=== PATIENT | female | born 1990 | race Caucasian/White ===

== ENCOUNTER 2016-08-22 01:57 | Emergency (ER) | payer OTHER ==
[2016-08-22] MEDS ORDERED: IOPAMIDOL 370 (76%) 100 ML VIAL IV ONE (01:58)
[2016-08-22] MEDS ORDERED: MORPHINE SULFATE 4 MG/ML SYRINGE ONE (02:50)
[2016-08-22] MEDS ORDERED: ONDANSETRON 4 MG/2ML 2 ML VIAL ONE (02:50)
[2016-08-22] MEDS ORDERED: KETOROLAC TROMETHAMINE 30 MG/ML 1 ML VIAL ONE (02:50)
[2016-08-22 03:04] LABS: ABSOLUTE NEUTROPHIL COUNT 6.2 K/mm3 (1.8-7.7); BASO % 0.4 % (0.2-1.0); EOS # 1.1 (0.0-0.5); EOS % 10.3 % (0.9-2.9); HEMATOCRIT 39.8 % (37.0-47.0); HEMOGLOBIN 13.4 gm/l (12.0-16.0); IMM NEUT% 0.3 % (0-1); LYMPH # 2.7 (1.0-4.8); LYMPH % 25.2 % (15-45); MEAN CORPUSCULAR HEMOGLOBIN 28.6 pg (27.0-31.0); MEAN CORPUSCULAR HGB CONC 33.7 g/dl (33.0-37.0); MEAN PLATELET VOLUME 8.9 fl (7.4-10.4); MONO # 0.6 (0.0-0.8); MONO % 5.3 % (4-12); NEUT % 58.5 % (43-75); PLATELET COUNT 497 K/mm3 (130-400); RED CELL DISTRIBUTION WIDTH 11.8 % (11.5-14.5)
[2016-08-22 03:16] LABS: ALB/GLOB RATIO 1.4 (>1.0); ALBUMIN 4.1 gm/dL (3.5-5.7); CALCIUM 9.3 mg/dL (8.6-10.3)
[2016-08-22 03:54] LABS: SPECIFIC GRAVITY 1.015 (1.001-1.030); URINE BILIRUBIN NEGATIVE (NEGATIVE); URINE BLOOD NEGATIVE (NEGATIVE); URINE GLUCOSE (UA) NEGATIVE (NEGATIVE); URINE LEUKOCYTE ESTERASE TRACE (NEGATIVE); URINE NITRITE NEGATIVE (NEGATIVE); URINE PROTEIN NEGATIVE (NEGATIVE); URINE UROBILINOGEN NORMAL (0-1 mg/dl)
[2016-08-22 03:55] LABS: URINE APPEARANCE CLEAR; URINE COLOR YELLOW
[2016-08-22 04:03] LABS: URINE BACTERIA FEW; URINE EPITHELIAL CELLS FEW /hpf; URINE RBC 0-1 /hpf
--- NOTE | 2016-08-22 08:19 | CT ---
Exam Type: ABD/PELVIS W/ CON Date and Time: 08/22/2016 3:13 AM Clinical information: Right lower quadrant pain. Comparison: 03/10/2014. Procedure: Imaging device: [employer] Aquilion [address] scanner 1 mm axial images were obtained through the abdomen and pelvis. Stacked reconstructed 3, 4 and 5 mm images were photographed in the axial coronal and sagittal planes. No oral contrast was utilized for this examination. 100 ml of Isovue-370 was injected intravenously. Exam: with intravenous contrast. FINDINGS: Lung bases:The visualized lung bases appear to be appropriate with no mass, effusion or consolidation visualized. Liver: the liver is homogeneous with no discrete abnormality visualized. No definite findings of biliary dilatation are observed. Spleen: The spleen is homogeneous and does not appear to be enlarged. Gallbladder: Normal without enlargement or evidence of adjacent inflammatory changes. Pancreas: Normal without enlargement or evidence of adjacent inflammatory changes. Adrenal glands: Normal without enlargement or evidence of adjacent inflammatory changes. Abdominal aorta: The aorta is of normal caliber and appears to be without significant atherosclerotic disease. Kidneys: The kidneys appear to be symmetric in size with no perinephric inflammatory changes are identified. No current findings of hydronephrosis are seen. Bowel structures: The visualized bowel is of normal caliber without evidence of dilatation or obstruction. No free fluid or mesenteric inflammatory changes are identified. Appendix: The appendix is well-visualized and appears to be of normal caliber. No periappendiceal inflammatory changes or CT findings of appendicitis are currently observed. Bladder: The bladder is of normal contour. No wall thickening or significant distention is observed. Hernia: A fat filled umbilical hernia is identified. Adenopathy: No significant enlarged adenopathy is visualized. Osseous structures: No discrete osseous abnormalities are identified. Pelvic structures: No discrete pelvic abnormalities are visualized in this examination. IMPRESSION: 1. A normal appearance of the appendix without current CT evidence of appendicitis. 2. A moderate amount of stool within the visualized colon. The findings were called to the emergency room at 0434 hours, 08/22/2016, by [facility].
== END 2016-08-22 04:57 | disposition home or self-care (01) ==
LOC: ED 01:57
DX: R10.9 Unspecified abdominal pain (principal); R11.0 Nausea; J45.909 Unspecified asthma, uncomplicated
CPT/HCPCS: 83690; 84703; 85025; 87086; 80053; 81001; 74177; 96375 ×2; 99284 ×2; 96374; J2270; J1885; J2405; Q9967